=== PATIENT | male | born 1955 | race Caucasian/White ===

== ENCOUNTER 2025-03-18 15:31 | Emergency (ER) | payer OTHER, SELFPAY ==
[2025-03-18 15:35] VITALS: BP 136/110
--- NOTE | 2025-03-18 16:23 | ED.GENMED ---
History of Present Illness
General
Chief Complaint: Fall
Time Seen by Provider: 03/18/25 15:56
History of Present Illness
History of Present Illness:
Hunter is a 70-year-old male who presents after tripping and falling over an extension cord at work today and subsequently developing left calf pain. Was able to ambulate but was having substantial pain in the left calf. Denies striking his head
or any loss of consciousness. Offers no other complaints. Denies any associated symptoms.
Phy Exam
General Physical Exam
General Presentation: well appearing and no apparent distress
General Skin: warm and dry
General Habitus: normal
General Mental: alert
General Hydration: appears well hydrated
ENT Exam
ENT Exam: EOMI, pharynx normal, neck supple and normocephalic
Eye Exam
Eye Exam: PERRL, cornea clear and conjunctiva normal
Cardiovascular Exam
Cardiovascular Exam: regular rate/rhythm, no edema, no murmur and normal peripheral pulses
Pulmonary Exam
Pulmonary Exam: lungs clear, no respiratory distress, no rales, no crackles, no rhonchi, no stridor, no wheezing and no cough
Gastrointestinal Exam
Gastrointestinal Exam: normal bowel sounds, non tender, soft, no organomegaly, no pulsatile mass and non distended
Neurological Exam
Neurological Exam: alert, oriented x3, no motor deficits and speech normal
Musculoskeletal Exam
Musculoskeletal Exam: full ROM (intact at left foot and knee), no edema and other (Pain with active dorsiflexion of left foot, )
Skin Exam
Skin Exam: normal color, warm/dry, no rash and no petechia
Psychiatric Exam
Psychiatric Exam: normal mood/affect
Course
Vital Signs
Initial and Last Documented VS:
Initial Vital Signs
Temp Pulse Resp BP Pulse Ox
37.0 C 84 16 136/110 99
03/18/25 15:35 03/18/25 15:35 03/18/25 15:35 03/18/25 15:35 03/18/25 15:35
Last Documented Vital Signs
Temp Pulse Resp BP Pulse Ox
37.0 C 84 16 136/110 99
03/18/25 15:35 03/18/25 15:35 03/18/25 15:35 03/18/25 15:35 03/18/25 15:35
MDM/Problems Addressed
Differential Diagnosis Includes:
Pain localized to left posterior lateral leg at the calf muscle. Able to plantar and dorsiflex foot but does have some pain with dorsiflexion. No bony tenderness. Able to range knee without difficulty. Given full range of motion and no bony
tenderness x-rays deferred. Discussed likely calf strain. Rest, ice, elevation and [id number] medications. Will send prescription for muscle relaxer as patient feels that it is spasming. Return precautions discussed. Does not need work
note as he is self-employed
*Pulse Oximetry
SaO2: 99
Oxygen Mode of Delivery: Room air
Patient hypoxic: no
*Critical Care Note
Total Time (30-74mins, 75-104mins- exclusive of procedures): Not Applicable
ED Attending Note
-
Portions of this chart may have been created with voice recognition software.� Occasional wrong word or��sound alike� substitutions may have occurred due to the inherent limitations of voice recognition software.
Discharge Plan
Departure
Referrals:
Mina Prince MD [Family Provider, Internal Medicine]
Interventions
Interventions:
*Risk Screen - Suicide Last Done: 03/18/25 15:32
*General Assessment Last Done: 03/18/25 15:35
*Neglect/Abuse Screening Last Done: 03/18/25 15:33
*ED COVID-19 Vaccine History Last Done: 03/18/25 15:35
*ED Influenza Vaccine History Last Done: 03/18/25 15:35
Discharge Date and Time
Print Language: DANISH
== END 2025-03-18 16:41 | disposition home or self-care (01) ==
LOC: EMR 15:31
PROVIDERS: EMERGENCY PHYSICIAN Emergency Medicine; FAMILY PHYSICIAN Internal Medicine
DX: S86.912A Strain of unspecified muscle(s) and tendon(s) at lower leg level, left leg, initial encounter (principal); W18.09XA Striking against other object with subsequent fall, initial encounter; Y99.0 Civilian activity done for income or pay
CPT/HCPCS: 99282